=== PATIENT | male | born 1985 | race African-American/Black ===

== ENCOUNTER 2020-04-18 23:26 | Emergency (ER) | payer MEDICAID ==
[~2020-04-18] VITALS: Ht 180.3 cm; Wt 84.0 kg
[2020-04-18 23:29] VITALS: BP 146/83
== END 2020-04-19 00:35 | disposition home or self-care (01) ==
LOC: ER 23:41
DX: M77.12 Lateral epicondylitis, left elbow (principal); Z90.49 Acquired absence of other specified parts of digestive tract
CPT/HCPCS: 99281